=== PATIENT | male | born 1940 | race Caucasian/White ===

== ENCOUNTER 2019-04-26 08:00 | Outpatient (CLI) | payer MEDICARE, MEDICAID ==
[2019-04-26] MEDS ORDERED: fentaNYL/PF 50MCG/1 ML 2ML syringe ONE (21:21)
[2019-04-26] MEDS ORDERED: midazolam 2 mg/2 ml injection ONE (21:21)
[2019-04-26] MEDS ORDERED: ceFAZolin 1000mg inj ONE (21:21)
[2019-04-26] MEDS ORDERED: iohexol 350 MG/ML 50ML vial IV ONE (21:21)
== END 2019-04-26 23:59 | disposition home or self-care (01) ==
LOC: RT 08:00
PROVIDERS: ATTEND Internal Medicine Pulmonary Disease
DX: J98.4 Other disorders of lung (principal); Z87.891 Personal history of nicotine dependence
CPT/HCPCS: 94618; J0690; J2250; J3010; Q9967

== ENCOUNTER 2019-04-27 14:15 | Outpatient (CLI) | payer MEDICARE, MEDICAID ==
[~2019-04-27] VITALS: Ht 167.6 cm; Wt 93.0 kg
[2019-04-27] MEDS ORDERED: albuterol 2.5 MG/3 ML nebule NEB PRN (14:50)
== END 2019-04-27 23:59 | disposition home or self-care (01) ==
LOC: RT 14:15
PROVIDERS: ATTEND Internal Medicine Pulmonary Disease
DX: J98.4 Other disorders of lung (principal); Z87.891 Personal history of nicotine dependence
CPT/HCPCS: 94060; 94727; 94729; 94760